=== PATIENT | male | born 1950 | race Caucasian/White ===

== ENCOUNTER → 2019-11-01 | Outpatient (CLI) | payer OTHER ==
[~2019-11-01] MED LIST: ARTHROTEC 50 E1 EACH PO; CIPROFLOXACIN500 M1 PO; DARVOCET-N 1001 EACH PO; OMEPRAZOLE40 MG PO; PYRIDIUM200 MG PO
== END ==
LOC: CAT 13:13
DX: Z13.6 Encounter for screening for cardiovascular disorders (principal); E78.00 Pure hypercholesterolemia, unspecified; I25.10 Atherosclerotic heart disease of native coronary artery without angina pectoris

== ENCOUNTER → 2020-02-03 | Outpatient (CLI) | payer OTHER | LOC: SJCVC 11:55 → SJCVCIMAG 11:55 | DX: I65.23 Occlusion and stenosis of bilateral carotid arteries (principal); I45.10 Unspecified right bundle-branch block; R00.1 Bradycardia, unspecified; R93.1 Abnormal findings on diagnostic imaging of heart and coronary circulation; E78.5 Hyperlipidemia, unspecified; E78.1 Pure hyperglyceridemia; M19.90 Unspecified osteoarthritis, unspecified site; K21.9 Gastro-esophageal reflux disease without esophagitis; F17.200 Nicotine dependence, unspecified, uncomplicated; Z79.899 Other long term (current) drug therapy ==

== ENCOUNTER → 2020-03-07 | Outpatient (CLI) | payer OTHER | LOC: SJCVCIMAG 07:54 | PROVIDERS: ATTEND Internal Medicine Cardiovascular Disease | DX: I07.1 Rheumatic tricuspid insufficiency (principal); R00.1 Bradycardia, unspecified; I45.10 Unspecified right bundle-branch block; I25.10 Atherosclerotic heart disease of native coronary artery without angina pectoris; I10 Essential (primary) hypertension; E78.1 Pure hyperglyceridemia; E78.00 Pure hypercholesterolemia, unspecified; R53.83 Other fatigue; K21.9 Gastro-esophageal reflux disease without esophagitis; F17.200 Nicotine dependence, unspecified, uncomplicated; Z79.82 Long term (current) use of aspirin; Z79.899 Other long term (current) drug therapy ==

== ENCOUNTER → 2020-04-26 | Outpatient (CLI) | payer OTHER ==
[~2020-04-26] MED LIST changes: +ADULT ASPIRIN R81 MG PO; +ASPERCREME LIDO73 ML TOP; +BENICAR20 MG PO; +EFFIENT10 MG PO; +LIPITOR40 MG PO; +LIVALO4 MG PO
== END ==
LOC: SJCVCIMAG 08:41
PROVIDERS: ATTEND Internal Medicine Cardiovascular Disease
DX: I45.10 Unspecified right bundle-branch block (principal); R00.1 Bradycardia, unspecified; I73.9 Peripheral vascular disease, unspecified; I25.10 Atherosclerotic heart disease of native coronary artery without angina pectoris; I77.1 Stricture of artery; E78.00 Pure hypercholesterolemia, unspecified; I10 Essential (primary) hypertension; F17.200 Nicotine dependence, unspecified, uncomplicated; Z79.899 Other long term (current) drug therapy

== ENCOUNTER 2020-08-22 21:06 | Inpatient (IN) | payer OTHER ==
[~2020-08-22] VITALS: Ht 177.8 cm; Wt 76.8 kg
[2020-08-22 21:08] VITALS: BP 137/44
[2020-08-22 21:59] LABS: WBC 13.3 thou/uL (4.0-11.0)
[2020-08-22 22:01] LABS: ABSOLUTE NEUTROPHILS 9.2 thou/uL (1.4-8.2); BASOPHILS 0.3 % (0.0-2.0); EOSINOPHILS 1.1 % (0.0-3.0); HEMATOCRIT 21.2 % (42.0-52.0); LYMPHOCYTES 19.7 % (24.0-44.0); MCH 22.1 pg (26.0-34.0); MCHC 29.1 g/dL (28.0-37.0); MCV 76.1 fL (80.0-100.0); MONOCYTES 10.1 % (1.0-8.0); PLATELET COUNT 391 thou/uL (150-400); POLYS 68.8 % (36.0-66.0); RBC 2.78 mil/uL (4.50-6.00); RDW 18.7 % (10.5-14.5)
[2020-08-22 22:04] LABS: HEMOGLOBIN 6.2 gm/dL (14.0-18.0)
[2020-08-22 22:18] LABS: CALCIUM 9.1 mg/dL (8.5-10.1); CREATININE 0.9 mg/dL (0.7-1.3); POTASSIUM 3.9 mmol/L (3.5-5.1)
[2020-08-22 23:45] VITALS: BP 120/42
[2020-08-23] VITALS (8 sets, daily range): BP systolic 119–155; BP diastolic 48–64
--- NOTE | 2020-08-23 00:08 | NUR ---
CALL CCU TO GIVE REPORT WAS TOLD TO CALL BACK IN 5MINS
[2020-08-23 08:37] LABS: HEMATOCRIT 26.6 % (42.0-52.0); MCH 24.5 pg (26.0-34.0); MCHC 30.9 g/dL (28.0-37.0); MCV 79.2 fL (80.0-100.0); RBC 3.36 mil/uL (4.50-6.00); RDW 19.4 % (10.5-14.5); WBC 13.9 thou/uL (4.0-11.0)
[2020-08-23 08:39] LABS: HEMOGLOBIN 8.2 gm/dL (14.0-18.0)
--- NOTE | 2020-08-23 09:23 | NUR ---
PT ADMITTED TO ROOM 201 AFTER LABS DRAWN TODAY HGB 6.2 AND PT INSTRUCTED TO COME IN TO ER, IV PROTONIX STARTED IN ER AND GI CONSULT CALLED, COVID LAB CAME BACK POSITIVE PT PLACED IN ISOLATION AND DR HI AND PT NOTIFIED PLAN TO TX TO ROOM 363 WHEN AVAILABLE, VSS, PT RECEIVING 2 U PRBC WITH OUT DIFFICULTY, VOIDING PER URINAL, NO C/O PAIN, PT KEPT NPO FOR POSSIBLE PROCEDURE. REPORT GIVEN TO NEXT SHIFT TO CON'T PPOC.
--- NOTE | 2020-08-23 10:27 | NUR ---
ASSUMED CARE AT SHIFT CHANGE, ALERT AND OREINTED X4 AND VSS. COMPLETED 2ND UNIT OF RBC W/O ANY REACTION, TOLERATING CLEAR LIQ DIET, AND DENIES ANY DISCOMFORT. REPORT GIVEN TO RN AND PATIENT TRANSFERED TO 3W.
[2020-08-23 10:39] LABS: % SATURATION 4 % (20-39); IRON 21 ug/dL (65-175); TIBC 518 ug/dL (250-450)
--- NOTE | 2020-08-23 12:09 | EKG ---
[address] [address] ELECTROCARDIOGRAM REPORT Name: LESTER PADRON Room #: 363-P ADM IN M.R.#: [id number] Admission: 08/22/20 Attend Phys: Zachariah Bhakta MD Discharge: Date of : 46 Report #: [id number] [facility] Test Date: 2020-08-23 Test Time: 08:12:51 Pat Name: LESTER PADRON Department: Room: 363 Gender: M Superintendent Overhead Distribution: ABHISHEK : 1950 Requested By: Amina Contrersa Order Number: [id number] MD: Roman Osborn Measurements Intervals [place] Rate: 51 P: 37 [place]: 170 QRS: -9 QRSD: 100 T: 56 QT: 422 QTc: 389 Interpretive Statements Sinus rhythm Anteroseptal infarct, age indeterminate Compared to ECG 03/15/2020 07:14:55 Myocardial infarct finding now present Sinus bradycardia no longer present Electronically Signed On 08-23-2020 12:08:51 LEADERSHIP DEVELOPMENT INSTRUCTOR by Roman Osborn [email or web address] <ELECTRONICALLY SIGNED> By: Roman Osborn MD, [facility] 08/23/20 1208 1 1 Roman Osborn MD, [facility] /EPI
--- NOTE | 2020-08-23 12:22 | NUR ---
Case opened to follow for dc planning. Pt admitted with GI bleed, low hgb and test + Covid. Radiation Control Worker spoke with the pt via phone as he is in enhanced ISO. He indicates that he lives with his Arleen and is indep and active. 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 His pcp is Dr. Bhakta. He has no dme or hh history. His dtr Mellissa is the PHYSICAL THERAPY AIDES TEACHER for [employer]. He wished to add her and son Eric to the contact list. He asked if family could drop off some of his things. Pt is transfering to 3W.Instructions provided on family dropping off items at security/er entrance (specifically his glasses) and pt given rm 363 on 3W as his new room number. He reports he has notified his family of Covid test results and does not have any known positive contacts. 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 Support provided. Will follow for any dc planning needs.
[2020-08-23 18:16] LABS: HEMATOCRIT 28.7 % (42.0-52.0); HEMOGLOBIN 8.7 gm/dL (14.0-18.0); MCHC 30.4 g/dL (28.0-37.0); MCV 79.2 fL (80.0-100.0); RBC 3.62 mil/uL (4.50-6.00); RDW 19.5 % (10.5-14.5); WBC 12.2 thou/uL (4.0-11.0)
--- NOTE | 2020-08-24 03:11 | NUR ---
ASSUMED CARE OF PATIENT AT 1900. VSS, AFEBRILE. REMAINS ON PROTONIX GTT. CALLS OUT APPROPRIATELY. DENIES PAIN. PROGRESSING SLOWLY TOWARDS POC GOALS.
[2020-08-24 04:59] LABS: HEMATOCRIT 25.8 % (42.0-52.0); MCH 24.6 pg (26.0-34.0); MCHC 30.9 g/dL (28.0-37.0); MCV 79.6 fL (80.0-100.0); RBC 3.24 mil/uL (4.50-6.00); RDW 19.5 % (10.5-14.5); WBC 11.5 thou/uL (4.0-11.0)
[2020-08-24 05:31] VITALS: BP 126/53
--- NOTE | 2020-08-24 07:14 | EKG ---
[address] [place] [address] ELECTROCARDIOGRAM REPORT Name: LESTER PADRON Room #: 363-P ADM IN M.R.#: [id number] Admission: 08/22/20 Attend Phys: Zachariah Bhakta MD Discharge: Date of : 46 Report #: [id number] [facility] ED Test Date: 2020-08-22 Test Time: 21:28:12 Pat Name: LESTER PADRON Department: Room: [facility] Gender: M Loader Engineer: : 1950 Requested By: John Krishna Order Number: [id number] MD: Faustino Bryan Measurements Intervals [place] Rate: 59 P: 32 [place]: 159 QRS: -2 QRSD: 105 T: 70 QT: 407 QTc: 404 Interpretive Statements Sinus bradycardia RSR' in V1 or V2, right VCD Compared to ECG 03/15/2020 07:14:55 No significant change was found Electronically Signed On 08-24-2020 7:14:40 PREPRESS SUPERVISOR by Faustino Bryan [email or web address] <ELECTRONICALLY SIGNED> By: Faustino Bryan MD, [facility] 08/24/2014 27 27 Faustino Bryan MD, [facility] /EPI
[2020-08-24 08:31] VITALS: BP 137/51
[2020-08-24 12:56] VITALS: BP 129/52
--- NOTE | 2020-08-24 15:42 | NUR ---
BREANN reviewed chart and spoke with nursing. Pt remains in Enhanced Isolation due to COVID-19. Pt is afebrile and not requiring O2. Pt is on IV iron today and tomorrow. Pt will need an outpatient EGD/colonoscopy. Discharge home is anticipated for tomorrow. BREANN placed call to pt's room. No answer. BREANN left voice message for pt's dtr, Mellissa. No SW needs identified at this time, but is available to assist should needs arise.
[2020-08-24 17:13] VITALS: BP 137/59
--- NOTE | 2020-08-24 18:40 | NUR ---
RN ASSUMED PT'S CARE AT 0700AM, PT IS A&OX3, PT'S ANEMIA HAS IMPROVED, PT IS CONTINUING IV PANTOPRAZOLE 8MG/HR ,PT DOES NOT HAVE BM TODAY, PT'S VS ARE STABLE, PT GETS UP TO CHAIR BY HIMSELF, PT WILL DC TO HOME AFTER FINISHING IV IRON DOSE.
[2020-08-24 20:31] VITALS: BP 124/57
[2020-08-25 04:18] VITALS: BP 134/62
[2020-08-25 04:42] LABS: HEMATOCRIT 27.1 % (42.0-52.0); HEMOGLOBIN 8.1 gm/dL (14.0-18.0); MCH 23.7 pg (26.0-34.0); MCHC 29.8 g/dL (28.0-37.0); MCV 79.4 fL (80.0-100.0); RBC 3.41 mil/uL (4.50-6.00); RDW 20.1 % (10.5-14.5); WBC 14.4 thou/uL (4.0-11.0)
[2020-08-25 09:15] VITALS: BP 131/43
--- NOTE | 2020-08-25 12:44 | NUR ---
RN ASSUMED PT'S CARE AT 0700AM, PT IS A&OX3, PT'S VS ARE STABLE, PT DOES NOT HAVE S/S OF GI BLEEDING, PT'S HAD IV IRON 200MG IVP TODAY ,PT DENIES SOB AND PAIN, RN HAS GIVING DC TEACHING , PT UNDERSTANDED WELL , PT'S SECONDARY SET UP MAN PT TO HOME ABOUT 1120AM.
== END 2020-08-25 11:44 | disposition home or self-care (01) | DRG 177 ==
LOC: ER 21:06 → 2N 23:22 → EROBS 23:22 → 3W 23:22 → 2N 08-23 00:04 → 3W 08-23 10:24
PROVIDERS: Emergency Medicine; Nurse Practitioner; Nurse Practitioner Adult Health; ADMIT Family Medicine; ATTEND Family Medicine
PROC: 30233N1 Transfusion of Nonautologous Red Blood Cells into Peripheral Vein, Percutaneous Approach (ICD-10-PCS; principal; 2020-08-23)
DX: U07.1 COVID-19 (principal); J12.89 Other viral pneumonia; K92.1 Melena; K92.2 Gastrointestinal hemorrhage, unspecified; I25.10 Atherosclerotic heart disease of native coronary artery without angina pectoris; M19.90 Unspecified osteoarthritis, unspecified site; K21.9 Gastro-esophageal reflux disease without esophagitis; I10 Essential (primary) hypertension; F17.210 Nicotine dependence, cigarettes, uncomplicated; E78.5 Hyperlipidemia, unspecified; E78.1 Pure hyperglyceridemia; D50.9 Iron deficiency anemia, unspecified; I70.209 Unspecified atherosclerosis of native arteries of extremities, unspecified extremity; E78.00 Pure hypercholesterolemia, unspecified; Z79.82 Long term (current) use of aspirin; Z85.46 Personal history of malignant neoplasm of prostate; Z79.899 Other long term (current) drug therapy; Z88.5 Allergy status to narcotic agent; Z88.2 Allergy status to sulfonamides; Z88.8 Allergy status to other drugs, medicaments and biological substances; Z91.048 Other nonmedicinal substance allergy status; Z95.5 Presence of coronary angioplasty implant and graft; Z90.49 Acquired absence of other specified parts of digestive tract
CPT/HCPCS: 10779

== ENCOUNTER → 2020-08-27 | Outpatient (CLI) | payer OTHER | LOC: LAB 09:45 | PROVIDERS: ATTEND Nurse Practitioner | DX: Z20.828 Contact with and (suspected) exposure to other viral communicable diseases (principal) ==

== ENCOUNTER → 2020-09-05 | Outpatient (CLI) | payer OTHER | LOC: LAB 12:00 | PROVIDERS: ATTEND Internal Medicine Gastroenterology | DX: Z01.812 Encounter for preprocedural laboratory examination (principal); Z20.828 Contact with and (suspected) exposure to other viral communicable diseases ==

== ENCOUNTER → 2020-09-11 | Outpatient (CLI) | payer OTHER ==
[~2020-09-11] VITALS: Ht 177.8 cm; Wt 74.8 kg
--- NOTE | 2020-09-13 14:07 | PATH ---
[facility] [address] [address] PATHOLOGY RPT PROCEDURE Name: COMPA THOMPSON Room #: REG [facility] Kate.#: [id number] Admission: 09/11/20 Date of : 46 Discharge: Report #: [id number] Path Case #: [id number] [facility] Accession Number: [id number] . 01 Material submitted: . PART A: gastrointestinal site - BX DUODENUM R/O CELIAC PART B: gastrointestinal site - BX ANTRUM R/. H.PYLORI PART C: esophagus - BX DISTAL ESOPHAGUS R/O BARRETTS. Modifiers: distal PART D: colon - BX SIGMOID POLYP. Modifiers: sigmoid . 01 Clinical history: . DTS/EGD AND COLONOSCOPY/DREW/POSITIVE OCCULT STOOL . 01 Diagnosis: A. Duodenum "duodenum, biopsy": - No obvious diagnostic changes. - There is no evidence of acute cryptitis, granulomas, adenomatous change, sprue-like changes or malignancy. . B. Gastric biopsy "antrum": - Mild chronic reactive gastropathy. - Immunoperoxidase stain for Helicobacter pylori is negative. . C. Glandular gastric-type mucosa "biopsy distal esophagus": - Mild chronic reactive gastropathy. - Squamous epithelium and gastroesophageal junction is not present for evaluation. - There is no evidence of goblet cell metaplasia, dysplasia or malignancy. . D. Colonic mucosa "biopsy sigmoid polyp": - Hyperplastic polyp. - There is no evidence of adenomatous change, high-grade dysplasia or malignancy. (SHA:errol; 09/13/2020) S 09/13/2020 1042 Local . 01 Electronically signed: . Chase Lam MD, Pathologist NPI- [id number] . 01 Gross description: . A. The specimen is received in formalin, labeled "Compa Thompson, biopsy duodenum, R/O celiac". Received is a segment of pale hunt soft tissue measuring 0.4 cm in maximum dimensions. The specimen is submitted entirely in cassette A1. . B. The specimen is received in formalin, labeled "Compa Thompson, antrum, [address] [address] PATHOLOGY RPT PROCEDURE Name: COMPA THOMPSON Room #: REG MAYITO Diaz#: [id number] Admission: 09/11/20 Date of : 46 Discharge: Report #: [id number] Path Case #: [id number] R/O H. pylori". Received are two segments of pale [place] soft tissue ranging in size from 0.3 to 0.4 cm in maximum dimensions. The specimen is submitted entirely in cassette B1. . C. The specimen is received in formalin, labeled "Compa Thompson, biopsy distal esophagus, R/O Palma's". Received is a segment of pale [place] soft tissue measuring 0.3 cm in maximum dimensions. The specimen is submitted entirely in cassette C1. . D. The specimen is received in formalin, labeled "Compa Thompson, sigmoid polyp". Received is a segment of pale [place] soft tissue measuring 0.4 cm in maximum dimensions. The specimen is submitted entirely in cassette D1. (CAA; 09/12/2020) QAC/QAC 09/12/2020 1753 Local . 01 Pathologist provided ICD-10: K31.9, K63.5 . 01 CPT . 548463, 842119, 655750, 901923, [id number] Specimen Comment: A courtesy copy of this report has been sent to [phone], [phone] Specimen Comment: [phone] Specimen Comment: Report sent to / DR MAHER Performed at: 01 [facility] [address], [place], [place] [address] MD Chase Lam MD Phone: [phone]
== END | disposition home or self-care (01) ==
LOC: GI 08:23
PROVIDERS: ATTEND Internal Medicine Gastroenterology
DX: D50.9 Iron deficiency anemia, unspecified (principal); K63.5 Polyp of colon; K57.30 Diverticulosis of large intestine without perforation or abscess without bleeding; K64.8 Other hemorrhoids; K22.2 Esophageal obstruction; K44.9 Diaphragmatic hernia without obstruction or gangrene; K31.9 Disease of stomach and duodenum, unspecified; R13.10 Dysphagia, unspecified; I10 Essential (primary) hypertension; E78.00 Pure hypercholesterolemia, unspecified; M10.9 Gout, unspecified; M19.90 Unspecified osteoarthritis, unspecified site; Z98.890 Other specified postprocedural states; Z79.899 Other long term (current) drug therapy; Z79.891 Long term (current) use of opiate analgesic; Z95.1 Presence of aortocoronary bypass graft; Z88.2 Allergy status to sulfonamides; Z88.8 Allergy status to other drugs, medicaments and biological substances
CPT/HCPCS: 62110; 62900

== ENCOUNTER → 2020-10-03 | Outpatient (CLI) | payer OTHER | LOC: SJCVC 10:56 | PROVIDERS: ATTEND Internal Medicine Cardiovascular Disease | DX: I25.10 Atherosclerotic heart disease of native coronary artery without angina pectoris (principal); I10 Essential (primary) hypertension; E78.00 Pure hypercholesterolemia, unspecified; K21.9 Gastro-esophageal reflux disease without esophagitis; K80.20 Calculus of gallbladder without cholecystitis without obstruction; R00.1 Bradycardia, unspecified; F17.200 Nicotine dependence, unspecified, uncomplicated; Z85.46 Personal history of malignant neoplasm of prostate; Z87.19 Personal history of other diseases of the digestive system; Z79.82 Long term (current) use of aspirin; Z79.899 Other long term (current) drug therapy; Z72.89 Other problems related to lifestyle; Z88.2 Allergy status to sulfonamides; Z88.1 Allergy status to other antibiotic agents; Z88.8 Allergy status to other drugs, medicaments and biological substances ==

== ENCOUNTER → 2021-04-03 | Outpatient (CLI) | payer OTHER | LOC: SJCVCIMAG 07:27 | PROVIDERS: ATTEND Internal Medicine Cardiovascular Disease | DX: I25.10 Atherosclerotic heart disease of native coronary artery without angina pectoris (principal); R00.1 Bradycardia, unspecified; R06.00 Dyspnea, unspecified; Z79.899 Other long term (current) drug therapy ==

== ENCOUNTER → 2021-10-17 | Outpatient (CLI) | payer OTHER | LOC: SJCVC 14:36 | PROVIDERS: ATTEND Internal Medicine Cardiovascular Disease | DX: R94.31 Abnormal electrocardiogram [ECG] [EKG] (principal); I25.10 Atherosclerotic heart disease of native coronary artery without angina pectoris; I10 Essential (primary) hypertension; E78.00 Pure hypercholesterolemia, unspecified; I77.9 Disorder of arteries and arterioles, unspecified; F17.200 Nicotine dependence, unspecified, uncomplicated; K21.9 Gastro-esophageal reflux disease without esophagitis; Z72.89 Other problems related to lifestyle; Z79.82 Long term (current) use of aspirin; Z79.899 Other long term (current) drug therapy; Z88.2 Allergy status to sulfonamides; Z88.1 Allergy status to other antibiotic agents; Z88.8 Allergy status to other drugs, medicaments and biological substances ==